=== PATIENT | female | born 1955 | race African-American/Black ===

== ENCOUNTER 2025-06-02 16:53 | Inpatient (IN) | payer BC, MEDICAID ==
[~2025-06-02] VITALS: Ht 165.1 cm; Wt 72.1 kg
[~2025-06-02 16:53] MED LIST: BENA-8 PO; LABE100T9 PO; SIMV10TA97 PO
[2025-06-02 16:57] VITALS: O2SAT 98
[2025-06-02 19:52] LABS: BASOPHILS % 0.6 % (0.0-2.0); EOSINOPHILS % 0.6 % (0.0-5.0); HEMATOCRIT. 42.4 % (36.0-48.0); HEMOGLOBIN. 13.4 g/dL (12.0-16.0); LYMPHOCYTES % 30.6 % (20.0-50.0); MEAN PLATELET VOLUME 10.1 fl (7.4-10.4); MONOCYTES % 10.0 % (2.0-8.0); NEUTROPHILS % 58.2 % (40.0-76.0); PLATELET 147 x1000/uL (130-400); RED BLOOD CELL COUNT 4.55 mill/uL (4.2-5.4); RED CELL DISTRIBUTION WIDTH 14.8 % (11.6-14.6)
[2025-06-02 20:02] LABS: INR 0.9
[2025-06-02 20:07] LABS: CREATININE 0.9 mg/dL (0.6-1.0)
[2025-06-02 20:08] LABS: TROPONIN I HIGH SENSITIVITY 9 ng/L (3.0-34); UREA NITROGEN BLOOD 12 mg/dL (9-23)
[2025-06-02 20:09] LABS: ASPARTATE AMINOTRANSFERASE 11 IU/L (<34)
[2025-06-02 20:10] LABS: BILIRUBIN DIRECT 0.3 mg/dL (<=3.0); BILIRUBIN TOTAL 0.8 mg/dL (0.1-1.0); PROTEIN TOTAL 5.7 g/dL (6.0-8.3)
[2025-06-03] VITALS (7 sets, daily range): BP systolic 99–147; BP diastolic 64–89; PULSE 67–81; RESP 18–20; TEMP 35.7–36.6; O2SAT 94–100
[2025-06-03] MEDS ORDERED: DEXTROSE 50% WATER 50ML SYRINGE IV PRN (02:30)
[2025-06-03] MEDS ORDERED: OXYCODONE HCL/ACETAMINOPHEN 5/325MG TABLET PO PRN (02:30)
[2025-06-03] MEDS: BLOOD SUGAR DIAGNOSTIC STRIP TEST SCH (07:39)
[2025-06-03] MEDS: INSULIN LISPRO 100 UNITS/ML SUBCUT SCH (07:50)
[2025-06-03] MEDS ORDERED: CLONIDINE 0.1MG TABLET PO PRN (09:45)
[2025-06-03] MEDS ORDERED: ACETAMINOPHEN 325MG TABLET PO PRN ×2 (09:45)
[2025-06-03] MEDS ORDERED: ONDANSETRON HCL 4MG/2ML INJ IV PRN (09:45)
[2025-06-03] MEDS ORDERED: IPRATROPIUM/ALBUTEROL 0.5-3(2.5)MG/3ML NEB HHN PRN (09:45)
[2025-06-03] MEDS ORDERED: NALOXONE HCL 0.4MG/ML VIAL IV PRN (10:00)
[2025-06-03] MEDS: OXYCODONE HCL/ACETAMINOPHEN 5/325MG TABLET PO PRN (12:24)
[2025-06-03] MEDS: HYDRALAZINE HCL 25MG TABLET PO SCH (12:24)
[2025-06-03 16:13] LABS: CREATINE KINASE MB FRACTION 0.7 ng/mL (0.5-3.6)
[2025-06-03 16:14] LABS: TROPONIN I HIGH SENSITIVITY 7.0 ng/L (3.0-34)
[2025-06-04] VITALS: BP 144/79; PULSE 80; RESP 20; TEMP 35.9; O2SAT 95
[2025-06-04 04:00] VITALS: BP 132/69; PULSE 60; RESP 20; TEMP 35.7; O2SAT 96
[2025-06-04 05:06] LABS: BASOPHILS % 0.6 % (0.0-2.0); EOSINOPHILS % 1.4 % (0.0-5.0); HEMATOCRIT. 40.8 % (36.0-48.0); HEMOGLOBIN. 13.1 g/dL (12.0-16.0); LYMPHOCYTES % 48.6 % (20.0-50.0); MEAN PLATELET VOLUME 10.3 fl (7.4-10.4); MONOCYTES % 7.8 % (2.0-8.0); NEUTROPHILS % 41.6 % (40.0-76.0); PLATELET 166 x1000/uL (130-400); RED BLOOD CELL COUNT 4.42 mill/uL (4.2-5.4); RED CELL DISTRIBUTION WIDTH 14.9 % (11.6-14.6)
[2025-06-04 05:20] LABS: CREATININE 0.8 mg/dL (0.6-1.0); UREA NITROGEN BLOOD 13 mg/dL (9-23)
[2025-06-04 08:00] VITALS: BP 124/59; PULSE 73; RESP 18; TEMP 36.6; O2SAT 100
[2025-06-04 12:00] VITALS: BP 109/64; PULSE 83; RESP 18; TEMP 36.2; O2SAT 100
[2025-06-04 16:00] VITALS: BP 131/74; PULSE 73; RESP 18; TEMP 36.4; O2SAT 99
[2025-06-04 20:00] VITALS: BP 140/69; PULSE 81; RESP 20; TEMP 35.8; O2SAT 100
[2025-06-05] VITALS: BP 134/83; PULSE 100; RESP 20; TEMP 35.7; O2SAT 100
[2025-06-05 04:00] VITALS: BP 125/83; PULSE 81; RESP 20; TEMP 35.9; O2SAT 98
[2025-06-05 08:00] VITALS: BP 118/99; PULSE 78; RESP 19; TEMP 36.4; O2SAT 99
[2025-06-05 12:00] VITALS: BP 148/86; PULSE 88; RESP 19; TEMP 36.6; O2SAT 99
[2025-06-05 16:00] VITALS: BP 124/74; PULSE 82; RESP 20; TEMP 36.6; O2SAT 100
[2025-06-05 20:00] VITALS: BP 137/86; PULSE 85; RESP 20; TEMP 36.3; O2SAT 100
[2025-06-05] MEDS: DOCUSATE SODIUM 100MG CAPSULE PO PRN (22:48)
[2025-06-06] VITALS: BP 140/71; PULSE 88; RESP 20; TEMP 36.2; O2SAT 99
[2025-06-06 04:00] VITALS: BP 140/71; PULSE 88; RESP 20; TEMP 36.2; O2SAT 99
[2025-06-06 08:00] VITALS: BP 150/97; PULSE 119; RESP 19; TEMP 36.4; O2SAT 99
[2025-06-06 08:09] VITALS: BP 138/85; PULSE 72; RESP 18; TEMP 98
[2025-06-06 12:00] VITALS: BP 132/81; PULSE 65; RESP 19; TEMP 36.4; O2SAT 100
[2025-06-06 16:00] VITALS: BP 152/95; PULSE 101; RESP 19; TEMP 36.7; O2SAT 96
== END 2025-06-06 17:40 | disposition left against medical advice (07) | DRG 347 ==
LOC: ER 16:53 → 6EST 21:44 → EDBEDREQ 21:50 → EDBEDREQTM 21:50 → ENRESERV 21:51
PROVIDERS: ADMIT Internal Medicine; ATTEND Internal Medicine
DX: M48.07 Spinal stenosis, lumbosacral region (principal); T74.91XA Unspecified adult maltreatment, confirmed, initial encounter; F03.90 Unspecified dementia, unspecified severity, without behavioral disturbance, psychotic disturbance, mood disturbance, and anxiety; E11.9 Type 2 diabetes mellitus without complications; M54.9 Dorsalgia, unspecified; I10 Essential (primary) hypertension; M54.2 Cervicalgia; Z53.29 Procedure and treatment not carried out because of patient's decision for other reasons; G89.29 Other chronic pain; Z86.73 Personal history of transient ischemic attack (TIA), and cerebral infarction without residual deficits; Z88.0 Allergy status to penicillin; Z88.5 Allergy status to narcotic agent; X58.XXXA Exposure to other specified factors, initial encounter; Y93.89 Activity, other specified; Y92.89 Other specified places as the place of occurrence of the external cause; Y99.8 Other external cause status
CPT/HCPCS: 36415; 71045; 72131; 72192; 80048; 80076; 82550; 82553; 82962; 83036; 83735; 83880; 84484; 85025; 86850; 86900; 93005; 97116; 97162; 97166; 97535; 99285; A4606; J1815

== ENCOUNTER 2025-07-16 09:30 | Emergency (ER) | payer BC ==
[~2025-07-16] VITALS: Ht 172.7 cm; Wt 70.0 kg
[2025-07-16 09:34] VITALS: BP 178/70; PULSE 81; RESP 16; TEMP 37; O2SAT 99
[2025-07-16] MEDS: ACETAMINOPHEN 500MG TABLET PO ONE (12:30)
== END 2025-07-16 14:50 | disposition home or self-care (01) ==
LOC: ER 09:30
DX: R51.9 Headache, unspecified (principal); E11.9 Type 2 diabetes mellitus without complications; I10 Essential (primary) hypertension; Z88.0 Allergy status to penicillin; Z88.5 Allergy status to narcotic agent
CPT/HCPCS: 99284